=== PATIENT | female | born 1990 | race Caucasian/White ===

== ENCOUNTER → 2019-10-06 | Outpatient (CLI) | payer BC | LOC: ZCOL.LAB 14:14 | DX: J02.9 Acute pharyngitis, unspecified (principal); Z20.828 Contact with and (suspected) exposure to other viral communicable diseases ==

== ENCOUNTER 2022-05-23 11:45 | Outpatient (CLI) | payer OTHER ==
[~2022-05-23] VITALS: Ht 167.6 cm; Wt 93.6 kg
--- NOTE | 2022-05-23 11:50 | NUR ---
PT AMBULATORY TO UNIT FROM CLINIC PER FOR SERIAL BP'S. DX:MILD PRE-ECLAMPSIA. PT REPORTS INTERMITTENT CONTRACTIONS, REPORTS POSTIIVE MOVEMENT, AND DENIES LOF. CATEGORY 1 EFM TRACING UPON INITIAL ASSESSMENT. WILL CONTINUE TO MONITOR PER ORDER.
[2022-05-23] MEDS ORDERED: PRILOSEC 20MG20 MG PO (12:11)
[2022-05-23] MEDS ORDERED: ASPIRIN 81M81 MG/TA2 PO (12:12)
[2022-05-23] MEDS ORDERED: PRENATAL (12:12)
[2022-05-23] MEDS ORDERED: VALTREX 50500 MG/TAB PO (12:13)
[2022-05-23 12:15] VITALS: BP 133/84; PULSE 101
[2022-05-23 12:25] VITALS: BP 124/75; PULSE 88
[2022-05-23 12:30] VITALS: BP 140/87; PULSE 114; TEMP 97.7
[2022-05-23 12:35] VITALS: BP 127/69; PULSE 99
[2022-05-23 12:45] VITALS: BP 115/68; PULSE 102
[2022-05-23 13:00] VITALS: BP 122/68; PULSE 85
--- NOTE | 2022-05-23 13:16 | NUR ---
1255 ELENITA CERRATO ON UNIT, REVIEWS BP'S AND FHTS WITH REACTIVE STRIP. ORDERS TO DISCHARGE PT HOME ON BEDREST WITH PLANS TO FOLLOW UP IN THE OFFICE. PT GIVEN BOTH WRITTEN AND VERBAL DISCHARGE INSTRUCTIONS. PT INSTRUCTED TO CALL/COME BACK IF PT NOTICES ANY LOF, VB, STRONG/REGULAR CTX, DFM, OR ANY OTHER CHANGES/CONCERNS. PT EDUCATED ON PIH SIGNS/SYMPTOMS TO WATCH FOR. PT VERBALIZES UNDERSTANDING AND HAS NO QUESTIONS AT THIS TIME.
== END 2022-05-23 13:00 | disposition home or self-care (01) ==
LOC: LDRO 11:45
DX: Z34.93 Encounter for supervision of normal pregnancy, unspecified, third trimester (principal); Z3A.35 35 weeks gestation of pregnancy